=== PATIENT | male | born 1940 | race Caucasian/White ===

== ENCOUNTER → 2017-08-12 | Outpatient (CLI) | payer MEDICARE, BC | END | disposition home or self-care (01) | LOC: CVU 10:57 | PROVIDERS: ATTEND Internal Medicine Cardiovascular Disease | DX: I08.0 Rheumatic disorders of both mitral and aortic valves (principal); I10 Essential (primary) hypertension; E78.5 Hyperlipidemia, unspecified; E11.9 Type 2 diabetes mellitus without complications | CPT/HCPCS: 93306 ==

== ENCOUNTER 2018-02-02 13:59 | Emergency (ER) | payer MEDICARE, BC ==
[~2018-02-02] VITALS: Ht 170.2 cm; Wt 105.3 kg
[2018-02-02 15:10] LABS: BASOPHILS # (AUTO) 0.04 x10^3/uL (0-0.1); BASOPHILS % (AUTO) 1 % (0-1); EOSINOPHILS % (AUTO) 3 % (1-7); LYMPHOCYTES # (AUTO) 1.65 x10^3/uL (1-3.4); LYMPHOCYTES % (AUTO) 21 % (22-44); MD NO; MEAN CORPUSCULAR HEMOGLOBIN 31.1 pg (27.5-34.5); MEAN CORPUSCULAR HGB CONC 33.9 g/dL (33.2-36.2); MEAN CORPUSCULAR VOLUME 91.5 fL (81-97); MEAN PLATELET VOLUME 8.1 fL (7.4-10.4); MONOCYTES # (AUTO) 0.68 x10^3/uL (0.2-0.8); MONOCYTES % (AUTO) 9 % (2-9); NEUTROPHILS # (AUTO) 5.31 x10^3/uL (1.8-6.8); NEUTROPHILS % (AUTO) 67 % (42-75); PLATELET COUNT 208 x10^3/uL (130-400); RED BLOOD COUNT 3.32 x10^6/uL (4.38-5.82); RED CELL DISTRIBUTION WIDTH 13.6 % (9.4-14.8)
[2018-02-02 15:22] LABS: ANION GAP 9 mmol/L (5-15); CALCIUM 8.6 mg/dL (8.5-10.1); CHLORIDE 101 mmol/L (98-107)
[2018-02-02 15:24] LABS: MICROSCOPIC AUTO
[2018-02-02 15:25] LABS: ALANINE AMINOTRANSFERASE 21 U/L (12-78); ALKALINE PHOSPHATASE 46 U/L (45-117); BILIRUBIN,TOTAL 0.4 mg/dL (0.2-1.0); CREATININE 2.16 mg/dL (0.7-1.3); TOTAL PROTEIN 6.7 g/dL (6.4-8.2)
[2018-02-02 15:27] LABS: CULTURE INDICATED? YES
[2018-02-02 17:48] VITALS: BP 134/55
== END 2018-02-02 17:50 | disposition home or self-care (01) ==
LOC: ED 14:56
DX: N28.9 Disorder of kidney and ureter, unspecified (principal); E11.65 Type 2 diabetes mellitus with hyperglycemia; D62 Acute posthemorrhagic anemia; I48.91 Unspecified atrial fibrillation; Z87.891 Personal history of nicotine dependence
CPT/HCPCS: 36415; 80053; 81001; 85025; 87086; 93005; 99285

== ENCOUNTER → 2018-02-20 | Outpatient (CLI) | payer MEDICARE, BC | END | disposition home or self-care (01) | LOC: CFH 10:39 | PROVIDERS: ATTEND Urology | DX: N20.0 Calculus of kidney (principal); N28.89 Other specified disorders of kidney and ureter; Z85.46 Personal history of malignant neoplasm of prostate | CPT/HCPCS: 36415; 74018; 84153 ==

== ENCOUNTER → 2018-10-03 | Outpatient (CLI) | payer MEDICARE, BC ==
[~2018-10-03] MED LIST: REGADENOSON 0.4 MG/5 ML SYRINGE ONE
== END | disposition home or self-care (01) ==
LOC: CFH 12:00
PROVIDERS: ATTEND Internal Medicine Cardiovascular Disease
DX: I10 Essential (primary) hypertension (principal); I25.10 Atherosclerotic heart disease of native coronary artery without angina pectoris; E11.9 Type 2 diabetes mellitus without complications; I42.9 Cardiomyopathy, unspecified
CPT/HCPCS: 78452; 93017; A9502; J2785

== ENCOUNTER 2018-11-22 12:19 | Emergency (ER) | payer MEDICARE, BC ==
[~2018-11-22] VITALS: Ht 170.2 cm; Wt 96.0 kg
[2018-11-22] MEDS ORDERED: KETOROLAC 30 MG/1 ML IVPush ONE (12:30)
[2018-11-22] MEDS ORDERED: ONDANSETRON 2MG/ML, 2ML IVPush ONE (12:30)
[2018-11-22] MEDS ORDERED: SODIUM CHLORIDE FLUSH 10ML SYR IVF ONE (12:30)
--- NOTE | 2018-11-22 12:40 | NUR ---
PT to room by HILDA; received report from Dajuan; pt reported worsening radiating down groin which has resolved. EKG leads; SpO2 monitor and blood pressure cuff attached. VSS, Provider to bedside.
[2018-11-22 12:49] LABS: BASOPHILS # (AUTO) 0.03 x10^3/uL (0-0.1); BASOPHILS % (AUTO) 0 % (0-1); EOSINOPHILS # (AUTO) 0.01 x10^3/uL (0-0.4); EOSINOPHILS % (AUTO) 0 % (1-7); LYMPHOCYTES # (AUTO) 0.93 x10^3/uL (1-3.4); LYMPHOCYTES % (AUTO) 9 % (22-44); MD NO; MEAN CORPUSCULAR HEMOGLOBIN 30.2 pg (27.5-34.5); MEAN CORPUSCULAR VOLUME 91.5 fL (81-97); MEAN PLATELET VOLUME 8.1 fL (7.4-10.4); MONOCYTES # (AUTO) 0.95 x10^3/uL (0.2-0.8); MONOCYTES % (AUTO) 10 % (2-9); NEUTROPHILS # (AUTO) 8.03 x10^3/uL (1.8-6.8); NEUTROPHILS % (AUTO) 81 % (42-75); PLATELET COUNT 182 x10^3/uL (130-400); RED BLOOD COUNT 3.35 x10^6/uL (4.38-5.82); RED CELL DISTRIBUTION WIDTH 14.6 % (9.4-14.8)
[2018-11-22] MEDS ORDERED: FURO20TA3 PO (12:54)
[2018-11-22] MEDS ORDERED: AMLO1TAB92 PO (12:54)
[2018-11-22] MEDS ORDERED: METO50TA82 PO (12:54)
[2018-11-22] MEDS ORDERED: LISI40TA PO (12:54)
[2018-11-22 12:57] LABS: INTERNATIONAL NORMALIZED RATIO 1.29 (0.93-1.1); PROTHROMBIN TIME 13.4 Seconds (9.6-11.5)
[2018-11-22 13:02] LABS: CHLORIDE 101 mmol/L (98-107)
[2018-11-22 13:08] LABS: ALANINE AMINOTRANSFERASE 21 U/L (12-78); ALBUMIN 2.4 g/dL (3.4-5.0); ALKALINE PHOSPHATASE 54 U/L (45-117); ANION GAP 7 mmol/L (5-15); BILIRUBIN,TOTAL 0.7 mg/dL (0.2-1.0); CALCIUM 8.3 mg/dL (8.5-10.1); CREATININE 1.25 mg/dL (0.7-1.3); TOTAL PROTEIN 6.5 g/dL (6.4-8.2)
[2018-11-22] MEDS ORDERED: INSU100V8 SQ (13:08)
[2018-11-22] MEDS ORDERED: POTA8TAB46 PO (13:08)
[2018-11-22] MEDS ORDERED: CLOP75TA PO (13:08)
[2018-11-22] MEDS ORDERED: GABA600T7 PO (13:08)
[2018-11-22] MEDS ORDERED: TERA10CA3 PO (13:08)
[2018-11-22] MEDS ORDERED: METO2.5T PO (13:08)
[2018-11-22] MEDS ORDERED: MAGN400T36 PO (13:08)
[2018-11-22] MEDS ORDERED: APIX5TAB PO (13:08)
[2018-11-22] MEDS ORDERED: FEBU40TA PO (13:08)
[2018-11-22 14:07] LABS: CULTURE INDICATED? YES; MICROSCOPIC AUTO
--- NOTE | 2018-11-22 14:09 | NUR ---
Pt resting in bed; asleep; easily arousable; snoring; reports no discomfort when aroused
--- NOTE | 2018-11-22 14:29 | NUR ---
1410 Discharge orders in EMR; RN to bedsided; aroused patient; informed patient IV push pain medication is available; declined IV med; reports having tramadol po at home and verbalized prefering po medication. MD to bedside while RN there; MD informed patient stones are stable and f/u with boiler shop mechanic is priority. Pt verbalized understanding. Pt agreeable to discharge; is contacting assisted living facility regarding transportation.
[2018-11-22 14:46] VITALS: BP 137/67
== END 2018-11-22 15:02 | disposition home or self-care (01) ==
LOC: ED 13:56
DX: N20.0 Calculus of kidney (principal); D63.8 Anemia in other chronic diseases classified elsewhere; E11.65 Type 2 diabetes mellitus with hyperglycemia; I48.91 Unspecified atrial fibrillation; I10 Essential (primary) hypertension; Z95.0 Presence of cardiac pacemaker; Z85.46 Personal history of malignant neoplasm of prostate
CPT/HCPCS: 36415; 74176; 80053; 81001; 83690; 85025; 85610; 87086; 93005; 99284

== ENCOUNTER 2019-04-10 11:32 | Outpatient (CLI) | payer MEDICARE, BC ==
[~2019-04-10 11:32] MED LIST changes: +AMLO1TAB92 PO; +APIX5TAB PO; +CLOP75TA PO; +FEBU40TA PO; +FURO20TA3 PO; +GABA600T7 PO; +INSU100V8 SQ; +LISI40TA PO; +MAGN400T36 PO; +METO2.5T PO; +METO50TA82 PO; +POTA8TAB46 PO; -REGADENOSON 0.4 MG/5 ML SYRINGE ONE; +TERA10CA3 PO
== END 2019-04-10 23:59 | disposition home or self-care (01) ==
LOC: RAD 11:32
PROVIDERS: ATTEND Urology
DX: N20.0 Calculus of kidney (principal); I87.8 Other specified disorders of veins
CPT/HCPCS: 74018